=== PATIENT | male | born 1950 | race African-American/Black ===

== ENCOUNTER 2023-10-14 16:39 | Inpatient (IN) | payer OTHER ==
[~2023-10-14] VITALS: Ht 185.4 cm; Wt 47.2 kg
[2023-10-14 16:39] VITALS: BP_SYST 110; PULSE 64; RESP 18; TEMP 98.3; O2SAT 98
[2023-10-14] MEDS: NACL 0.9% 1,000 ML IV ONE (17:15)
[2023-10-14] MEDS ORDERED: ROSU10TA2 PO (17:29)
[2023-10-14] MEDS ORDERED: TAMS-11 PO (17:29)
[2023-10-14] MEDS ORDERED: ASPI81CA PO (17:29)
[2023-10-14] MEDS ORDERED: DAPA5TAB PO (17:29)
[2023-10-14] MEDS ORDERED: CARV25TA55 PO (17:29)
[2023-10-14] MEDS ORDERED: METF-379 PO (17:29)
[2023-10-14] MEDS ORDERED: ERGO1250 PO (17:29)
[2023-10-14] MEDS ORDERED: FINA5TAB11 PO (17:29)
[2023-10-14] MEDS ORDERED: FURO-150 PO (17:29)
[2023-10-14] MEDS ORDERED: NITR-85 PO (17:29)
[2023-10-14] MEDS ORDERED: INSU100V8 (17:29)
[2023-10-14 17:30] LABS: BASOPHILS % (AUTO) 0.7 % (0.0-2.0); EOSINOPHILS # (AUTO) 0.1 K/uL (0.0-0.4); EOSINOPHILS % (AUTO) 3.3 % (0.0-4.0); HEMATOCRIT 41.5 % (36-54); HEMOGLOBIN 13.9 g/dL (14.0-18.0); LYMPHOCYTES # (AUTO) 0.7 K/uL (1.0-5.5); LYMPHOCYTES % (AUTO) 16.5 % (20.5-51.5); MEAN CORPUSCULAR HEMOGLOBIN 28 pg (27-31); MEAN CORPUSCULAR HGB CONC 34 % (32-36); MEAN CORPUSCULAR VOLUME 84 fL (79.0-98.0); MONOCYTES # (AUTO) 0.6 K/uL (0.0-1.0); MONOCYTES % (AUTO) 13.1 % (1.7-9.3); NEUTROPHILS # (AUTO) 2.8 K/uL (1.8-7.7); NEUTROPHILS % (AUTO) 66.4 % (40.0-70.0); PLATELET COUNT (AUTO) 276 K/uL (130-430); RED BLOOD CELL COUNT(AUTO) 4.94 MIL/uL (4.2-6.2); RED CELL DISTRIBUTION WIDTH 13.4 % (9.0-15.0); WHITE BLOOD COUNT (AUTO) 4.3 K/uL (4.8-10.8)
[2023-10-14 17:31] LABS: ALANINE AMINOTRANSFERASE 36 U/L (12-78); ALBUMIN 3.1 g/dL (3.4-4.8); ANION GAP 15 (5-15); ASPARTATE AMINOTRANSFERASE 24 U/L (10-37); CALCIUM 9.3 mg/dL (8.4-11.0); CARBON DIOXIDE 23 mmol/L (23-29); CHLORIDE 93 mmol/L (98-107); CREATININE 1.66 mg/dL (0.55-1.30); GLUCOSE 226 mg/dL (74-106); POTASSIUM 4.3 mmol/L (3.5-5.1); SODIUM SERUM 131 mmol/L (136-145); TOTAL BILIRUBIN 0.9 mg/dL (0.0-1.0); TOTAL PROTEIN, SERUM 7.7 g/dL (6.4-8.3); UREA NITROGEN, BLOOD 49 mg/dL (8-21)
[2023-10-14 17:37] LABS: INR 1.1 (0.80-1.20); PROTHROMBIN TIME 10.9 SECS (9.5-12.5)
[2023-10-14 17:40] LABS: BILIRUBIN,DIRECT 0.2 mg/dL (0.0-0.3); CREATINE KINASE, TOTAL 13 U/L (39-308); FREE T4 (FREE THYROXINE) 1.2 ng/dl (0.8-1.5); THYROID STIMULATING HORMONE 2.81 uIu/mL (0.36-3.74)
[2023-10-14 17:49] LABS: ACETONE, SERUM NEGATIVE (NEGATIVE)
[2023-10-14] MEDS ORDERED: HYDROcodone/ACETAMIN 5-325 MG TAB (NORCO/ VICODIN) PO PRN (18:45)
[2023-10-14] MEDS ORDERED: ACETAMINOPHEN 325 MG TABLET PO PRN (18:45)
[2023-10-14 19:17] LABS: BILIRUBIN,URINE NEGATIVE (NEGATIVE); BLOOD, URINE 3+ (NEGATIVE); CLARITY/URINE SL CLOUDY (CLEAR); COLOR,URINE YELLOW (YELLOW); GLUCOSE,URINE 3+ (NEGATIVE); KETONES,URINE 1+ (NEGATIVE); LEUKOCYTE ESTERASE ,URINE 2+ (NEGATIVE); NITRITE, URINE NEGATIVE (NEGATIVE); PROTEIN URINE 2+ (NEGATIVE); UROBILINOGEN,URINE 0.2 (0.2-1.0)
[2023-10-14 19:37] LABS: BACTERIA,URINE FEW /HPF (None Seen); MUCUS,URINE None Seen /LPF (None Seen)
[2023-10-14] MEDS: D5/0.45 NS 1,000 ML IV ONE (19:41)
[2023-10-14 20:41] VITALS: BP_SYST 116; PULSE 69; RESP 18; TEMP 97.4; O2SAT 100
[2023-10-14 20:42] VITALS: BP_SYST 116; RESP 18; TEMP 97.4; O2SAT 99
[2023-10-14 22:59] VITALS: O2SAT 99
[2023-10-15] VITALS: BP_SYST 110; PULSE 72; RESP 18; TEMP 97.9; O2SAT 98
[2023-10-15 04:17] LABS: BASOPHILS # (AUTO) 0.1 K/uL (0.0-0.2); EOSINOPHILS # (AUTO) 0.2 K/uL (0.0-0.4); EOSINOPHILS % (AUTO) 3.8 % (0.0-4.0); HEMATOCRIT 37.1 % (36-54); HEMOGLOBIN 12.3 g/dL (14.0-18.0); LYMPHOCYTES # (AUTO) 0.8 K/uL (1.0-5.5); LYMPHOCYTES % (AUTO) 14.4 % (20.5-51.5); MEAN CORPUSCULAR HEMOGLOBIN 28 pg (27-31); MEAN CORPUSCULAR HGB CONC 33 % (32-36); MEAN CORPUSCULAR VOLUME 85 fL (79.0-98.0); MONOCYTES # (AUTO) 0.7 K/uL (0.0-1.0); MONOCYTES % (AUTO) 13.5 % (1.7-9.3); NEUTROPHILS # (AUTO) 3.6 K/uL (1.8-7.7); NEUTROPHILS % (AUTO) 67.3 % (40.0-70.0); PLATELET COUNT (AUTO) 232 K/uL (130-430); RED BLOOD CELL COUNT(AUTO) 4.37 MIL/uL (4.2-6.2); RED CELL DISTRIBUTION WIDTH 13.4 % (9.0-15.0); WHITE BLOOD COUNT (AUTO) 5.3 K/uL (4.8-10.8)
[2023-10-15 04:51] LABS: ALANINE AMINOTRANSFERASE 33 U/L (12-78); ALBUMIN 2.8 g/dL (3.4-4.8); ANION GAP 11 (5-15); ASPARTATE AMINOTRANSFERASE 26 U/L (10-37); CALCIUM 8.9 mg/dL (8.4-11.0); CARBON DIOXIDE 24 mmol/L (23-29); CHLORIDE 98 mmol/L (98-107); CREATININE 1.44 mg/dL (0.55-1.30); GLUCOSE 291 mg/dL (74-106); POTASSIUM 3.8 mmol/L (3.5-5.1); SODIUM SERUM 133 mmol/L (136-145); TOTAL BILIRUBIN 0.9 mg/dL (0.0-1.0); TOTAL PROTEIN, SERUM 6.9 g/dL (6.4-8.3); UREA NITROGEN, BLOOD 44 mg/dL (8-21)
[2023-10-15 09:00] VITALS: BP_SYST 106; PULSE 74; RESP 16; TEMP 96.9; O2SAT 100
[2023-10-15 09:30] VITALS: O2SAT 100
[2023-10-15] MEDS ORDERED: D5W 1,000 ML IV PRN (09:45)
[2023-10-15] MEDS ORDERED: GLUCOSE (DEXTROSE) ORAL GEL -Adults PO PRN (09:45)
[2023-10-15] MEDS ORDERED: DEXTROSE 50% JECT 50 ML DISP.SYRIN IVP PRN (09:45)
[2023-10-15] MEDS: D5/0.45 NS 1,000 ML IV SCH (09:59)
[2023-10-15] MEDS: CEFAZOLIN 1 GM IVPB PREMIX 50 ML IV ONE (09:59)
[2023-10-15 12:16] VITALS: BP_SYST 125; PULSE 64; RESP 14; TEMP 97.6; O2SAT 99
[2023-10-15] MEDS: INSULIN LISPRO SLIDING SCALE 100 UNITS/ML, 3 ML VIAL (humaLOG) SUBCUT PRN (14:47)
[2023-10-15] MEDS: MIDAZOLAM HCL 5 MG/5 ML VIAL ONE (15:18)
[2023-10-15] MEDS: fentaNYL CITRATE/PF 100 MCG/2 ML AMP ONE (15:18)
[2023-10-15 16:01] VITALS: BP_SYST 112; PULSE 84; RESP 14; TEMP 97.1; O2SAT 99
[2023-10-15 18:31] LABS: THYROID STIMULATING HORMONE 1.88 uIu/mL (0.36-3.74)
[2023-10-15 19:00] VITALS: O2SAT 95
[2023-10-16 00:38] VITALS: BP_SYST 132; PULSE 89; RESP 17; TEMP 97.1; O2SAT 99
[2023-10-16] MEDS: MORPHINE 4 MG INJ. 4 MG/ML VIAL IVP PRN (06:58)
[2023-10-16 08:23] LABS: BASOPHILS % (AUTO) 0.2 % (0.0-2.0); EOSINOPHILS % (AUTO) 0.6 % (0.0-4.0); HEMATOCRIT 38.3 % (36-54); HEMOGLOBIN 12.8 g/dL (14.0-18.0); LYMPHOCYTES # (AUTO) 0.5 K/uL (1.0-5.5); LYMPHOCYTES % (AUTO) 5.9 % (20.5-51.5); MEAN CORPUSCULAR HEMOGLOBIN 28 pg (27-31); MEAN CORPUSCULAR HGB CONC 33 % (32-36); MEAN CORPUSCULAR VOLUME 84 fL (79.0-98.0); MONOCYTES # (AUTO) 0.7 K/uL (0.0-1.0); MONOCYTES % (AUTO) 8.4 % (1.7-9.3); NEUTROPHILS # (AUTO) 6.7 K/uL (1.8-7.7); NEUTROPHILS % (AUTO) 84.9 % (40.0-70.0); PLATELET COUNT (AUTO) 227 K/uL (130-430); RED BLOOD CELL COUNT(AUTO) 4.54 MIL/uL (4.2-6.2); RED CELL DISTRIBUTION WIDTH 13.5 % (9.0-15.0); WHITE BLOOD COUNT (AUTO) 7.9 K/uL (4.8-10.8)
[2023-10-16 08:39] LABS: ALANINE AMINOTRANSFERASE 25 U/L (12-78); ALBUMIN 2.6 g/dL (3.4-4.8); ANION GAP 9 (5-15); ASPARTATE AMINOTRANSFERASE 13 U/L (10-37); CARBON DIOXIDE 26 mmol/L (23-29); CHLORIDE 102 mmol/L (98-107); CREATININE 0.96 mg/dL (0.55-1.30); GLUCOSE 167 mg/dL (74-106); POTASSIUM 3.1 mmol/L (3.5-5.1); SODIUM SERUM 137 mmol/L (136-145); TOTAL BILIRUBIN 0.6 mg/dL (0.0-1.0); TOTAL PROTEIN, SERUM 7.1 g/dL (6.4-8.3); UREA NITROGEN, BLOOD 24 mg/dL (8-21)
[2023-10-16 10:00] VITALS: O2SAT 99
[2023-10-16 11:00] VITALS: O2SAT 95
[2023-10-16 11:40] VITALS: BP_SYST 121; PULSE 87; RESP 18; TEMP 96; O2SAT 96
[2023-10-16] MEDS: cefTRIAXone 1 GM in D5W 50 ML IV SCH (12:18)
[2023-10-16] MEDS: NICOTINE 14 MG/24 HR PATCH.TD24 TD ONE (12:57)
[2023-10-16 15:00] VITALS: BP_SYST 111; PULSE 82; RESP 18; TEMP 97.6; O2SAT 99
[2023-10-16 19:00] VITALS: O2SAT 100
[2023-10-17] VITALS: BP_SYST 108; PULSE 82; RESP 18; TEMP 97.3; O2SAT 100
[2023-10-17 08:00] VITALS: O2SAT 94
[2023-10-17 08:36] VITALS: BP_SYST 98; PULSE 82; RESP 14; TEMP 97.1; O2SAT 94
[2023-10-17 08:58] LABS: BASOPHILS % (AUTO) 0.4 % (0.0-2.0); EOSINOPHILS # (AUTO) 0.1 K/uL (0.0-0.4); EOSINOPHILS % (AUTO) 1.9 % (0.0-4.0); HEMATOCRIT 35.9 % (36-54); LYMPHOCYTES # (AUTO) 0.5 K/uL (1.0-5.5); LYMPHOCYTES % (AUTO) 9.4 % (20.5-51.5); MEAN CORPUSCULAR HEMOGLOBIN 28 pg (27-31); MEAN CORPUSCULAR HGB CONC 34 % (32-36); MEAN CORPUSCULAR VOLUME 84 fL (79.0-98.0); MONOCYTES # (AUTO) 0.5 K/uL (0.0-1.0); MONOCYTES % (AUTO) 10.9 % (1.7-9.3); NEUTROPHILS # (AUTO) 3.8 K/uL (1.8-7.7); NEUTROPHILS % (AUTO) 77.4 % (40.0-70.0); PLATELET COUNT (AUTO) 216 K/uL (130-430); RED BLOOD CELL COUNT(AUTO) 4.28 MIL/uL (4.2-6.2); RED CELL DISTRIBUTION WIDTH 13.2 % (9.0-15.0); WHITE BLOOD COUNT (AUTO) 4.9 K/uL (4.8-10.8)
[2023-10-17 09:14] LABS: ALANINE AMINOTRANSFERASE 28 U/L (12-78); ALBUMIN 2.3 g/dL (3.4-4.8); ANION GAP 8 (5-15); ASPARTATE AMINOTRANSFERASE 30 U/L (10-37); CALCIUM 8.8 mg/dL (8.4-11.0); CARBON DIOXIDE 25 mmol/L (23-29); CHLORIDE 101 mmol/L (98-107); CREATININE 0.99 mg/dL (0.55-1.30); GLUCOSE 269 mg/dL (74-106); SODIUM SERUM 134 mmol/L (136-145); TOTAL BILIRUBIN 0.4 mg/dL (0.0-1.0); TOTAL PROTEIN, SERUM 6.3 g/dL (6.4-8.3); UREA NITROGEN, BLOOD 19 mg/dL (8-21)
[2023-10-17] MEDS: NICOTINE 14 MG/24 HR PATCH.TD24 TD SCH (09:36)
[2023-10-17] MEDS ORDERED: KCL 40 mEq in 100 mL (PREMIX) 100 ML IV ONE (10:00)
[2023-10-17] MEDS: POLYETHYLENE GLYCOL 3350, 17 GM/ POWD.PACK PO ONE (10:30)
[2023-10-17 12:24] VITALS: BP_SYST 100; PULSE 89; RESP 17; TEMP 97.8; O2SAT 98
[2023-10-17] MEDS ORDERED: NICO-680 TD (13:05)
[2023-10-17] MEDS: POTASSIUM CHLORIDE 20 mEq in 100 mL (PREMIX) 100 ML x 2 doses IV SCH (13:47)
[2023-10-17 16:00] VITALS: BP_SYST 101; PULSE 83; RESP 17; TEMP 98; O2SAT 97
[2023-10-17 20:00] VITALS: BP_SYST 115; PULSE 85; RESP 18; TEMP 98; O2SAT 100; O2SAT 97
[2023-10-18] VITALS: BP_SYST 113; PULSE 82; RESP 18; TEMP 97.7; O2SAT 97
[2023-10-18] MEDS: POLYETHYLENE GLYCOL 3350, 17 GM/ POWD.PACK PO SCH (09:00)
[2023-10-18 09:28] VITALS: BP_SYST 109; PULSE 81; RESP 16; TEMP 96.5; O2SAT 98
[2023-10-18 09:36] LABS: BASOPHILS % (AUTO) 0.5 % (0.0-2.0); EOSINOPHILS % (AUTO) 0.9 % (0.0-4.0); HEMATOCRIT 34.4 % (36-54); HEMOGLOBIN 11.2 g/dL (14.0-18.0); LYMPHOCYTES # (AUTO) 0.4 K/uL (1.0-5.5); LYMPHOCYTES % (AUTO) 10.2 % (20.5-51.5); MEAN CORPUSCULAR HEMOGLOBIN 28 pg (27-31); MEAN CORPUSCULAR HGB CONC 33 % (32-36); MEAN CORPUSCULAR VOLUME 84 fL (79.0-98.0); MONOCYTES # (AUTO) 0.4 K/uL (0.0-1.0); MONOCYTES % (AUTO) 11.9 % (1.7-9.3); NEUTROPHILS # (AUTO) 2.8 K/uL (1.8-7.7); NEUTROPHILS % (AUTO) 76.5 % (40.0-70.0); PLATELET COUNT (AUTO) 209 K/uL (130-430); RED BLOOD CELL COUNT(AUTO) 4.08 MIL/uL (4.2-6.2); RED CELL DISTRIBUTION WIDTH 13.4 % (9.0-15.0); WHITE BLOOD COUNT (AUTO) 3.7 K/uL (4.8-10.8)
[2023-10-18 09:43] LABS: ALANINE AMINOTRANSFERASE 35 U/L (12-78); ALBUMIN 2.2 g/dL (3.4-4.8); ANION GAP 5 (5-15); ASPARTATE AMINOTRANSFERASE 25 U/L (10-37); CALCIUM 8.8 mg/dL (8.4-11.0); CARBON DIOXIDE 30 mmol/L (23-29); CHLORIDE 100 mmol/L (98-107); CREATININE 0.88 mg/dL (0.55-1.30); GLUCOSE 269 mg/dL (74-106); POTASSIUM 3.8 mmol/L (3.5-5.1); SODIUM SERUM 135 mmol/L (136-145); TOTAL BILIRUBIN 0.4 mg/dL (0.0-1.0); TOTAL PROTEIN, SERUM 6.1 g/dL (6.4-8.3); UREA NITROGEN, BLOOD 16 mg/dL (8-21)
[2023-10-18 12:45] VITALS: BP_SYST 126; PULSE 71; RESP 14; TEMP 97.6; O2SAT 98
[2023-10-18 17:08] VITALS: BP_SYST 137; PULSE 80; RESP 16; TEMP 98.4; O2SAT 100
[2023-10-18 19:00] VITALS: O2SAT 100
[2023-10-18 22:00] VITALS: BP_SYST 130; PULSE 76; RESP 20; TEMP 98; O2SAT 100
[2023-10-19 00:29] VITALS: BP_SYST 124; PULSE 91; RESP 14; TEMP 97.6; O2SAT 99
[2023-10-19 05:00] VITALS: BP_SYST 124; PULSE 90; RESP 17; TEMP 98; O2SAT 98
[2023-10-19 07:42] LABS: TOTAL IRON BIND. CAPACITY 333 ug/dL (250-450)
[2023-10-19 08:49] VITALS: BP_SYST 127; PULSE 82; RESP 17; TEMP 98; O2SAT 99
[2023-10-19 10:00] VITALS: O2SAT 99
[2023-10-19 10:26] VITALS: BP_SYST 127; PULSE 82; RESP 17; TEMP 98; O2SAT 99
[2023-10-19] MEDS ORDERED: FOLIC ACID 1 MG TABLET PO ONE (11:30)
[2023-10-19] MEDS: INSULIN Lispro 100 UNITS/ML, 3 ML VIAL (humaLOG) SUBCUT ONE (11:59)
[2023-10-20] MEDS ORDERED: FOLIC ACID 1 MG TABLET PO SCH (09:00)
== END 2023-10-19 13:30 | DRG 682 ==
LOC: SED 16:39 → SMU 18:34
PROVIDERS: ADMIT Family Medicine; ATTEND Family Medicine
PROC: 0DH63UZ Insertion of Feeding Device into Stomach, Percutaneous Approach (ICD-10-PCS; principal; 2023-10-15 12:00)
PROC: 0DB78ZX Excision of Stomach, Pylorus, Via Natural or Artificial Opening Endoscopic, Diagnostic (ICD-10-PCS; 2023-10-15 12:00)
DX: N17.9 Acute kidney failure, unspecified (principal); E43 Unspecified severe protein-calorie malnutrition; E87.1 Hypo-osmolality and hyponatremia; N13.4 Hydroureter; Z68.1 Body mass index [BMI] 19.9 or less, adult; R62.7 Adult failure to thrive; E11.65 Type 2 diabetes mellitus with hyperglycemia; E87.6 Hypokalemia; D64.9 Anemia, unspecified; R31.9 Hematuria, unspecified; N40.0 Benign prostatic hyperplasia without lower urinary tract symptoms; E88.09 Other disorders of plasma-protein metabolism, not elsewhere classified; Z79.899 Other long term (current) drug therapy; Z72.0 Tobacco use; K25.9 Gastric ulcer, unspecified as acute or chronic, without hemorrhage or perforation
CPT/HCPCS: 36415; 43239; 43246; 71045; 80048; 80053; 80076; 81000; 81001; 81015; 82009; 82550; 82948; 83037; 83540; 83550; 83605; 83735; 84153; 84439; 84443; 84484; 85025; 85044; 85610; 85651; 85730; 87040; 87086; 88305; 88312; 88313; 93005; 96360; 97110-GP; 97116-GP; 97530-GP; 99285; J0690; J0696; J2250; J2270; J3010; J3480; J7060